=== PATIENT | female | born 1945 | race Caucasian/White ===

== ENCOUNTER → 2017-03-17 | Outpatient (CLI) | payer MEDICARE, BC ==
--- NOTE | 2017-03-18 12:57 | MM ---
Reason for exam: screening (asymptomatic). Last mammogram was performed 7 months ago. History: Patient is postmenopausal. Reductions of both breasts, 2010. Benign stereotactic core biopsy of the left breast, December 31, 2004. Benign stereotactic core biopsy of the left breast, April 14, 1999. Physical Findings: A clinical breast exam by your physician is recommended on an annual basis and results should be correlated with mammographic findings. MG 3D Screening Mammo W/Cad Bilateral CC and MLO view(s) were taken. Prior study comparison: August 06, 2016, right breast MG 3d diag mammo w/cad RT. March 11, 2016, bilateral MG diagnostic mammo w CAD EMELYN. October 18, 2014, bilateral MG screening mammo w CAD. August 07, 2013, CAD bilateral diagnostic mammogram. The breast tissue is heterogeneously dense. This may lower the sensitivity of mammography. Previous mammotome biopsy in the left breast x 3. Bilateral mammoplasty changes. Subtle calcifications central left breast on the CC view maybe new but are not clearly localized on the MLO view. These can be reassessed in 6 months. ASSESSMENT: Probably benign, BI-RAD 3 RECOMMENDATION: Follow-up diagnostic mammogram of the left breast in 6 months.
== END | disposition home or self-care (01) ==
LOC: RADMAMWWP 06:57
PROVIDERS: ATTEND Family Medicine
DX: Z12.31 Encounter for screening mammogram for malignant neoplasm of breast (principal)
CPT/HCPCS: 77063; G0202

== ENCOUNTER → 2017-10-17 | Outpatient (CLI) | payer MEDICARE, BC ==
--- NOTE | 2017-10-17 08:20 | MM ---
Reason for exam: follow-up at short interval from prior study. Last mammogram was performed 7 months ago. History: Patient is postmenopausal. Reductions of both breasts, 2010. Benign stereotactic core biopsy of the left breast, December 31, 2004. Benign stereotactic core biopsy of the left breast, April 14, 1999. Physical Findings: Nurse did not find any significant physical abnormalities on exam. MG 3D Diag Mammo W/Cad LT CC, MLO, and ML view(s) were taken of the left breast. Prior study comparison: March 17, 2017, bilateral MG 3d screening mammo w/cad. August 06, 2016, right breast MG 3d diag mammo w/cad RT. The breast tissue is heterogeneously dense. This may lower the sensitivity of mammography. Previous mammotome biopsy in the left breast x 3. Group of microcalcifications lateral left breast at a middle depth are unchanged for 6 months. Continued short interval follow up recommended. Asymmetric density superior left breast does not persist on 3D images. These results were verbally communicated with the patient and result sheet given to the patient on 10/17/17. ASSESSMENT: Probably benign, BI-RAD 3 RECOMMENDATION: Follow-up diagnostic mammogram of both breasts in 6 months.
== END | disposition home or self-care (01) ==
LOC: RADMAMWWP 07:01
PROVIDERS: ATTEND Family Medicine
DX: R92.8 Other abnormal and inconclusive findings on diagnostic imaging of breast (principal)
CPT/HCPCS: G0206; G0279

== ENCOUNTER → 2018-01-18 | Outpatient (CLI) | payer MEDICARE, BC ==
[2018-01-18 10:21] LABS: Basophils # (A) 0.1 k/uL (0-0.2); Basophils % (A) 1 %; Eosinophils # (A) 0.1 k/uL (0-0.7); Eosinophils % (A) 2 %; HCT 40.1 % (34.0-46.0); HGB 12.9 gm/dL (11.4-16.0); Lymphocytes # (A) 1.5 k/uL (1.0-4.8); Lymphocytes % (A) 31 %; MCH 29.6 pg (25.0-35.0); MCHC 32.1 g/dL (31.0-37.0); MCV 92.2 fL (80.0-100.0); Mean Platelet Volume 8.2; Monocytes # (A) 0.3 k/uL (0-1.0); Monocytes % (A) 6 %; Neutrophils # (A) 2.8 k/uL (1.3-7.7); Neutrophils % (A) 57 %; Platelet Count 198 k/uL (150-450); RBC 4.35 m/uL (3.80-5.40); RDW 13.8 % (11.5-15.5); WBC 4.9 k/uL (3.8-10.6)
[2018-01-18 10:43] LABS: T4, Free (Free Thyroxine) 0.98 ng/dL (0.78-2.19)
== END | disposition home or self-care (01) ==
LOC: LABWHC1 10:35
PROVIDERS: ATTEND Otolaryngology
DX: R43.0 Anosmia (principal)
CPT/HCPCS: 36415; 82565; 82607; 84439; 84443; 85025

== ENCOUNTER → 2018-01-31 | Outpatient (CLI) | payer MEDICARE, BC ==
--- NOTE | 2018-02-01 08:02 | MR ---
EXAMINATION TYPE: MR brain wo/w con DATE OF EXAM: 01/31/2018 COMPARISON: CT brain 07/05/2011 HISTORY: 72-year-old female Anosmia / Dysnomia TECHNIQUE: Multiplanar, multisequence images of the brain and brainstem were acquired before and aft er administration of 9 mL IV Gadavist. Diffusion weighted imaging is performed. FINDINGS: No evidence for acute infarction, hemorrhage, mass, mass effect, midline shift, herniation, effacemen t of basal cisterns, or extra-axial fluid collection. The ventricles and sulci are age-appropriate with mild generalized supratentorial volume loss. Major intracranial flow voids are intact. T2/FLAIR weighted sequences show mild scattered burden of right white matter change with foci located in the subcortical, deep, and periventricular regions of both cerebral hemispheres numbering approxi mately 10 on each side. Midline structures demonstrate normal morphology. The craniocervical junction is normal. Post contrast images demonstrate no evidence of pathologic enhancement. Dural venous sinuses are pat ent. Moderate mucosal thickening ethmoid air cells and mild to moderate within the maxillary sinuses. Glob es are intact. IMPRESSION: 1. No acute intracranial abnormality seen. 2. Mild cerebral atrophy. There is mild burden of T2 bright white matter change which is nonspecific, most likely relating to chronic small vessel ischemic disease. 3. Moderate chronic ethmoid and mild to moderate chronic maxillary sinusitis.
== END | disposition home or self-care (01) ==
LOC: RADMRIMAIN 06:01
PROVIDERS: ATTEND Otolaryngology
DX: G31.9 Degenerative disease of nervous system, unspecified (principal); R90.82 White matter disease, unspecified
CPT/HCPCS: 70553; A9581

== ENCOUNTER → 2018-07-26 | Outpatient (CLI) | payer MEDICARE, BC ==
--- NOTE | 2018-07-26 08:28 | MM ---
Reason for exam: follow-up at short interval from prior study. Last mammogram was performed 9 months ago. History: Patient is postmenopausal. Reductions of both breasts, 2010. Benign stereotactic core biopsy of the left breast, December 31, 2004. Benign stereotactic core biopsy of the left breast, April 14, 1999. Physical Findings: Nurse did not find any significant physical abnormalities on exam. MG 3D Diag Mammo W/Cad EMELYN Bilateral CC, MLO, and XCCL view(s) were taken. Prior study comparison: October 17, 2017, left breast MG 3d diag mammo w/cad LT. March 17, 2017, bilateral MG 3d screening mammo w/cad. The breast tissue is heterogeneously dense. This may lower the sensitivity of mammography. Previous mammotome biopsy in the left breast x 3. Small grouped calcifications central left breast stable for 1 year 4 months. Additional diagnostic follow up recommended. Scattered bilateral calcifications are unchanged. These results were verbally communicated with the patient and result sheet given to the patient on 07/26/18. ASSESSMENT: Probably benign, BI-RAD 3 RECOMMENDATION: Follow-up diagnostic mammogram of both breasts in 1 year. (left breast total 2 year follow up)
== END | disposition home or self-care (01) ==
LOC: RADMAMWWP 07:35
PROVIDERS: ATTEND Family Medicine
DX: R92.8 Other abnormal and inconclusive findings on diagnostic imaging of breast (principal)
CPT/HCPCS: 77066; G0279; 77062

== ENCOUNTER 2018-08-09 07:49 | Day surgery (SDC) | payer MEDICARE, BC ==
[2018-08-08 09:22] VITALS: BMI 37.1
[~2018-08-09 07:49] MED LIST: LACTATED RINGERS 1,000 ML IV SCH; LIDOCAINE 1% 20 ML VIAL (10MG/ML) FOR IV START INTRADERMA PRN
[2018-08-09 08:12] VITALS: RESP 18; TEMP 97.8
[2018-08-09] MEDS ORDERED: PROPOFOL 10 MG/ML 20 ML VIAL IV ONE (08:24)
[2018-08-09] MEDS ORDERED: LIDOCAINE 1% INJ 10MG/ML (20 ML MDV) ONE (08:24)
--- NOTE | 2018-08-09 08:28 | P.GSHP ---
History of Present Illness H&P Date: 08/09/18 Chief Complaint: Colon cancer screening Patient here today for colonoscopy. Last colonoscopy 5 years ago and this was normal. No bowel complaints. No family history of colon cancer. Past Medical History Past Medical History: Hyperlipidemia, Hypertension History of Any Multi-Drug Resistant Organisms: None Reported Past Surgical History: Breast Surgery Additional Past Surgical History / Comment(s): BREAST REDUCTION Past Anesthesia/Blood Transfusion Reactions: No Reported Reaction Smoking Status: Never smoker - Past Family History Father Family Medical History: Cancer Additional Family Medical History / Comment(s): LUNG CANCER Sister(s) Family Medical History: Cancer Brother(s) Family Medical History: Cancer Medications and Allergies Home Medications Medication Instructions Recorded Confirmed Type Olmesartan Medoxomil [Benicar] 40 mg PO HS 08/08/18 08/09/18 History Pravastatin Sodium [Pravachol] 20 mg PO HS 08/08/18 08/09/18 History Allergies Allergy/AdvReac Type Severity Reaction Status Date / Time No Known Allergies Allergy Verified 08/08/18 09:16 Surgical - Exam Vital Signs Temp Pulse Resp BP Pulse Ox 97.8 F 75 18 136/72 96 08/09/18 08:11 08/09/18 08:11 08/09/18 08:11 08/09/18 08:11 08/09/18 08:11 Physical exam: General: Well-developed, well-nourished HEENT: Normocephalic, sclerae nonicteric Abdomen: Nontender, nondistended Extremities: No edema Neuro: Alert and oriented Assessment and Plan (1) Colon cancer screening Narrative/Plan: Will proceed with colonoscopy at this time Current Visit: Yes Status: Acute Code(s): Z12.11 - ENCOUNTER FOR SCREENING FOR MALIGNANT NEOPLASM OF COLON SNOMED Code(s): 715403916
--- NOTE | 2018-08-09 08:45 | P.PCN ---
Date of Procedure: 08/09/18 Procedure(s) Performed: PREOPERATIVE DIAGNOSIS: Colon cancer screening POSTOPERATIVE DIAGNOSIS: Cecal polyp, sigmoid polyp, diverticulosis PROCEDURE: Colonoscopy with snare polypectomy and biopsy ANESTHESIA: MAC SURGEON: Juan Pablo Ontiveros M.D. SPECIMENS: Polyps ENDOSCOPIC PROCEDURE: The patient was placed on the endoscopy table in the left decubitus position. The Olympus colonoscope was inserted into the anus and passed under direct visualization to the base of the cecum. The appendiceal orifice was visualized. From that point the scope was slowly withdrawn inspecting all surfaces carefully. A small polyp in the base of the cecum was seen. This was removed using the cold biopsy forceps. The remainder of the ascending transverse and descending colon appeared normal. In the sigmoid colon a small polyp was removed using the snare with cautery technique. The remainder of the sigmoid and rectum appeared normal. Air was moderate diverticulosis scattered throughout the entire colon. Digital rectal examination was normal. The patient was taken to the recovery room in stable condition per anesthesia guidelines. RECOMMENDATIONS: Await biopsy results. Anticipate follow-up colonoscopy 5 years.
[2018-08-09 09:15] VITALS: BP 116/62; PULSE 62
== END 2018-08-09 09:29 | disposition home or self-care (01) ==
LOC: ORWHC2ENDO 07:49
PROVIDERS: ATTEND Surgery
DX: Z12.11 Encounter for screening for malignant neoplasm of colon (principal); K63.5 Polyp of colon; K57.90 Diverticulosis of intestine, part unspecified, without perforation or abscess without bleeding; E78.5 Hyperlipidemia, unspecified; I10 Essential (primary) hypertension; Z79.899 Other long term (current) drug therapy
CPT/HCPCS: 88305; 45380; 45385; J2001; J2704

== ENCOUNTER → 2019-03-21 | Outpatient (CLI) | payer MEDICARE, BC ==
--- NOTE | 2019-03-21 07:48 | US ---
EXAMINATION TYPE: US thyroid st tissue head/neck DATE OF EXAM: 03/21/2019 COMPARISON: NONE CLINICAL HISTORY: E04.1 THYROID NODULE. follow up exam GLAND SIZE: Right Lobe: 3.2 x 1.4 x 1.9 cm Overall Parenchyma: heterogenous Left Lobe: 5.8 x 2.9 x 2.7 cm Overall Parenchyma: heterogeneous Isthmus Thickness: 0.4 cm NODULES RIGHT: # of nodules measured on right: 2 1. 1.8 X 1.2 x 1.3 cm hypoechoic solid nodule at the mid pole with well-defined margins. This nodu le is wider than tall and shows intranodular vascularity. Prior size: no previous 2. 1.0 X 0.9 x 0.9 cm hyperechoic solid nodule at the lower pole with well-defined margins. This no dule is wider than tall and shows no intranodular vascularity. Prior size: no previous LEFT: # of nodules measured on left: 2 1. 4.0 X 3.1 x 2.6 cm hypoechoic solid nodule at the mid pole with well-defined margins. This nodu le is wider than tall and shows no intranodular vascularity. Prior size: no previous 2. 1.2 X 0.9 x 0.9 cm isoechoic solid nodule at the upper pole with well-defined margins. This nodu le is wider than tall and shows no intranodular vascularity. Prior size: no previous calcification seen inferiorly ISTHMUS: # of nodules measured in the isthmus: 0 Bilateral neck scanned, no evidence of lymphadenopathy. Patient states she had previous ultrasounds here and fna but no record of it from 2005 to current kirit e. IMPRESSION: 1. Multiple nonspecific thyroid nodules as discussed above. The need to biopsy should be made on a cl inical basis. Enlargement of the left thyroid lobe. Correlate with thyroid function testing and physi lilli exam findings.
[2019-03-21 08:51] LABS: T4, Free (Free Thyroxine) 1.07 ng/dL (0.78-2.19)
== END | disposition home or self-care (01) ==
LOC: RADUSWWP 06:50
PROVIDERS: ATTEND Otolaryngology
DX: E04.2 Nontoxic multinodular goiter (principal); E03.9 Hypothyroidism, unspecified
CPT/HCPCS: 36415; 76536; 84439; 84443; 86376

== ENCOUNTER 2019-04-12 09:27 | Day surgery (SDC) | payer MEDICARE, BC ==
[2019-04-12 09:47] VITALS: TEMP 97.8
[2019-04-12 12:19] VITALS: BP 145/83; PULSE 84; RESP 16
--- NOTE | 2019-04-12 14:10 | US ---
EXAMINATION TYPE: US FNA thyroid each add lesion, US FNA thyroid each add lesion, US FNA thyroid each add lesion, US FNA thyroid first lesion DATE OF EXAM: 04/12/2019 COMPARISON: Ultrasound thyroid 03/21/2019 HISTORY: Thyroid nodules bilaterally. Maximal barrier technique was utilized, ultrasound used with sterile technique. After informed conse nt, skin overlying the first lesion in the mid pole of the right lobe was localized with ultrasound a nd the overlying skin prepped and draped. Ultrasound was utilized using sterile technique. Lidocaine was used for local anesthesia. Five passes with a 25-gauge needle were made into the nodule and aspi rated specimen was submitted to cytology. Using similar technique the lower pole nodule medially was sampled with 5 passes with a 25-gauge needle. Using similar technique the upper pole region of the le ft lobe of the gland was sampled with 5 passes and a 25-gauge needle. Subsequently the dominant nodul e in the left lobe of the gland was sampled with 5 passes with a 25-gauge needle. Following the proce dure hemostasis achieved. No immediate complication. The patient discharged in stable condition. IMPRESSION: STATUS POST ULTRASOUND GUIDED FINE NEEDLE ASPIRATION OF THYROID NODULES, PATHOLOGY IS PEN DING. Incidental note made of an additional nodule in the lower pole the right lobe laterally. THIS PROCEDURE WAS PERFORMED BY THE UNDERSIGNED.
== END 2019-04-12 11:45 | disposition home or self-care (01) ==
LOC: RADPROMAIN 09:27
PROVIDERS: ATTEND Otolaryngology
DX: E04.2 Nontoxic multinodular goiter (principal)
CPT/HCPCS: 10005; 10006; 88173; 88305

== ENCOUNTER → 2019-10-03 | Outpatient (CLI) | payer MEDICARE, BC ==
--- NOTE | 2019-10-03 08:10 | MM ---
Reason for exam: additional evaluation requested from prior study. Last mammogram was performed 1 year and 2 months ago. History: Patient is postmenopausal. Reductions of both breasts, 2009. Benign stereotactic core biopsy of the left breast, December 31, 2004. Benign stereotactic core biopsy of the left breast, April 14, 1999. Physical Findings: Nurse did not find any significant physical abnormalities on exam. MG 3D Diag Mammo W/Cad EMELYN Bilateral CC and MLO view(s) were taken. XCCL view(s) were taken of the left breast. Prior study comparison: July 26, 2018, bilateral MG 3d diag mammo w/cad EMELYN. October 17, 2017, left breast MG 3d diag mammo w/cad LT. The breast tissue is heterogeneously dense. This may lower the sensitivity of mammography. Benign appearing similar bilateral calcifications. No suspicious abnormality. Multiple left biopsy markers. These results were verbally communicated with the patient and result sheet given to the patient on 10/03/19. ASSESSMENT: Benign, BI-RAD 2 RECOMMENDATION: Routine screening mammogram of both breasts in 1 year.
== END | disposition home or self-care (01) ==
LOC: RADMAMWWP 06:57
PROVIDERS: ATTEND Family Medicine
DX: R92.8 Other abnormal and inconclusive findings on diagnostic imaging of breast (principal)
CPT/HCPCS: 77066; G0279; 77062

== ENCOUNTER → 2021-01-07 | Outpatient (CLI) | payer MEDICARE, BC ==
--- NOTE | 2021-01-07 15:47 | BD ---
EXAMINATION TYPE: Axial Bone Density DATE OF EXAM: 01/07/2021 COMPARISON: 08/06/2016 CLINICAL HISTORY: Height: 60.2 IN Weight: 209 LBS RISK FACTORS HISTORY OF: Active: YES Diet low in dairy products/other sources of calcium: YES Postmenopausal woman: AGE 55 MEDICATIONS: Additional Medications: BENICAR, PRAVASTATIN, Additional History: SARCOMA EXAM MEASUREMENTS: Bone mineral densitometry was performed using the [employer] System. Bone mineral density as measured about the Lumbar spine is: ----- L1-L4(G/cm2): 1.153 T Score Values are as follows: ----- L2: -0.2 ----- L3: -0.1 ----- L4: 0.4 ----- L1-L4: -0.2 Bone mineral density has: Increased 0.8% since study of: 08/06/2016 Bone mineral density about the R hip (g/cm2): 0.919 Bone mineral density about the L hip (g/cm2): 0.824 T Score values are as follows: -----R Neck: -0.9 -----L Neck: -1.5 -----R Total: -1.2 -----L Total: -0.7 Bone mineral density has: Decreased -10.3% since study of: 08/06/2016 IMPRESSION: Osteopenia right femoral neck. NOTE: T-SCORE=SD OF THE YOUNG ADULT MEAN.
--- NOTE | 2021-01-08 12:12 | MM ---
Reason for exam: screening (asymptomatic). Last mammogram was performed 1 year and 3 months ago. History: Patient is postmenopausal and history of other cancer. Reductions of both breasts, 2009. Benign stereotactic core biopsy of the left breast, December 31, 2004. Benign stereotactic core biopsy of the left breast, April 14, 1999. Physical Findings: A clinical breast exam by your physician is recommended on an annual basis and results should be correlated with mammographic findings. MG 3D Screening Mammo W/Cad Bilateral CC, MLO, and CV view(s) were taken. Prior study comparison: October 03, 2019, bilateral MG 3d diag mammo w/cad EMELYN. July 26, 2018, bilateral MG 3d diag mammo w/cad EMELYN. The breast tissue is heterogeneously dense. This may lower the sensitivity of mammography. Stable benign calcifications. There is no discrete abnormality. No significant changes when compared with prior studies. ASSESSMENT: Benign, BI-RAD 2 RECOMMENDATION: Routine screening mammogram of both breasts in 1 year.
== END | disposition home or self-care (01) ==
LOC: RADMAMWWP 11:06
PROVIDERS: ATTEND Family Medicine
DX: Z12.31 Encounter for screening mammogram for malignant neoplasm of breast (principal); M85.851 Other specified disorders of bone density and structure, right thigh; Z78.0 Asymptomatic menopausal state
CPT/HCPCS: 77063; 77067; 77080

== ENCOUNTER → 2021-05-11 | Outpatient (CLI) | payer MEDICARE, BC ==
[2021-05-11 12:40] LABS: HCT 40.8 % (34.0-46.0); HGB 13.2 gm/dL (11.4-16.0); MCH 29.8 pg (25.0-35.0); MCHC 32.3 g/dL (31.0-37.0); MCV 92.4 fL (80.0-100.0); Mean Platelet Volume 8.6; Platelet Count 192 k/uL (150-450); RBC 4.42 m/uL (3.80-5.40); RDW 13.8 % (11.5-15.5); WBC 5.2 k/uL (3.8-10.6)
[2021-05-11 12:44] LABS: ALT 9 U/L (4-34); AST 25 U/L (14-36); African American GFR (CKD) >90 (>60 ml/min/1.73 sqM); Albumin 4.4 g/dL (3.5-5.0); Alkaline Phosphatase 93 U/L (38-126); Anion Gap 6 mmol/L; Blood Urea Nitrogen 16 mg/dL (7-17); Calcium 9.4 mg/dL (8.4-10.2); Carbon Dioxide 27 mmol/L (22-30); Chloride 110 mmol/L (98-107); Glucose 104 mg/dL (74-99); Non-African American GFR(CKD) >90 (>60 ml/min/1.73 sqM); Potassium 4.5 mmol/L (3.5-5.1); Sodium 143 mmol/L (137-145); Total Bilirubin 0.2 mg/dL (0.2-1.3)
[2021-05-11 13:08] LABS: INR 0.9 (<1.2)
[2021-05-11 13:15] LABS: Appearance,Urine Cloudy (Clear); Bacteria,Urine Rare /hpf; Bilirubin,Urine Negative (Negative); Blood,Urine Trace (Negative); Color,Urine Yellow; Glucose,Urine (UA) Negative (Negative); Ketones,Urine Negative (Negative); Leukocyte Esterase,Urine Large (Negative); Mucus,Urine Rare /hpf; Nitrite,Urine Negative (Negative); PH, Urine 5.5 (5.0-8.0); Protein,Urine Trace (Negative); RBC,Urine 8 /hpf (0-5); Specific Gravity,Urine 1.025 (1.001-1.035); Squamous Epithelial Cell,Urine 5 /hpf (0-4); Urobilinogen,Urine <2.0 mg/dL (<2.0); WBC,Urine 75 /hpf (0-5)
== END | disposition home or self-care (01) ==
LOC: LABPAT 11:31
PROVIDERS: ATTEND Orthopaedic Surgery
DX: Z01.812 Encounter for preprocedural laboratory examination (principal); Z01.810 Encounter for preprocedural cardiovascular examination; Z01.818 Encounter for other preprocedural examination
CPT/HCPCS: 36415; 80053; 81001; 85027; 85610; 85730; 86850; 86900; 86901; 87070; 93005

== ENCOUNTER 2021-05-19 07:56 | Day surgery (SDC) | payer MEDICARE, BC ==
[2021-05-12 12:41] VITALS: BMI 39.1
[~2021-05-19 07:56] MED LIST changes: +ACETAMINOPHEN TAB 500 MG TAB PO PRN; +DEXAMETHASONE SOD PHOSPHATE 4 MG/ML 1 ML VIAL IV ONE; +GABAPENTIN 300 MG CAP PO PRN; +HYDROmorphone 0.5 MG/0.5 ML SYRINGE IVP PRN; -LACTATED RINGERS 1,000 ML IV SCH; -LIDOCAINE 1% 20 ML VIAL (10MG/ML) FOR IV START INTRADERMA PRN; +MELOXICAM 7.5 MG TAB PO PRN; +ONDANSETRON 4 MG/2 ML VIAL IVP ONE; +TRANEXAMIC ACID 1,000 MG in SODIUM CHLORIDE 0.9% 100 ML IVPB PRN
[2021-05-19] MEDS ORDERED: LIDOCAINE 1% (10MG/ML) FOR IV START INTRADERMA ONE (08:30)
[2021-05-19] MEDS: LACTATED RINGERS 1,000 ML IV SCH ×2 (08:30→12:08)
[2021-05-19] MEDS ORDERED: HYDROmorphone 0.2 MG/1 ML SYRINGE IVP PRN (08:54)
[2021-05-19] MEDS ORDERED: ONDANSETRON 4 MG/2 ML VIAL IVP PRN (08:54)
[2021-05-19] MEDS ORDERED: HYDROmorphone 0.5 MG/0.5 ML SYRINGE IVP PRN ×2 (08:54)
[2021-05-19] MEDS ORDERED: NALOXONE 0.4 MG/ML 1 ML VIAL IV PRN (08:54)
[2021-05-19] MEDS ORDERED: HYDROcodone/APAP 7.5-325MG 1 EACH TAB PO PRN ×2 (08:56)
[2021-05-19] MEDS ORDERED: SODIUM CHLORIDE 0.9% 1,000 ML IV SCH (09:00)
[2021-05-19] MEDS ORDERED: LIDOCAINE 1% INJ 10MG/ML (20 ML MDV) ONE (09:12)
[2021-05-19] MEDS ORDERED: ceFAZolin 3,000 MG in SODIUM CHLORIDE 0.9% IRRIGATIO 3,000 ML IRRIGATION ONE (09:12)
[2021-05-19] MEDS ORDERED: SODIUM CHLORIDE 0.9% 100 ML BAG ONE (09:12)
[2021-05-19] MEDS ORDERED: TRANEXAMIC ACID 1,000 MG/10 ML VIAL ONE (09:12)
[2021-05-19] MEDS ORDERED: MIDAZOLAM 2 MG/2 ML VIAL ONE (09:12)
[2021-05-19] MEDS ORDERED: HEPARIN SODIUM,PORCINE 10,000 UNIT/ML 1 ML VIAL ONE (09:12)
[2021-05-19] MEDS ORDERED: ROCURONIUM 10 MG/ML (5 ML VIAL) IV ONE (09:12)
[2021-05-19] MEDS ORDERED: fentaNYL (PF) 50 MCG/ML 2 ML AMP ONE (09:12)
[2021-05-19] MEDS ORDERED: HYDROmorphone (PF) 1 MG/ML ONE (09:12)
[2021-05-19] MEDS ORDERED: SODIUM CHLORIDE 0.9% IRRIG 1,000 ML BTL IRRIGATION ONE (09:12)
[2021-05-19] MEDS ORDERED: SUCCINYLCHOLINE CHLORIDE 100 MG/5 ML SYR IV ONE (09:12)
[2021-05-19] MEDS ORDERED: PROPOFOL 10 MG/ML 20 ML VIAL IV ONE (09:12)
[2021-05-19] MEDS: ROPIVACAINE/EPI/CLONIDINE/KET 50 ML SYRINGE MISCELLANE PRN ×2 (09:17→10:26)
--- NOTE | 2021-05-19 10:32 | P.OP ---
Date of Procedure: 05/19/21 Preoperative Diagnosis: Severe osteoarthritis right hip Postoperative Diagnosis: Severe osteoarthritis right hip Procedure(s) Performed: Right total hip arthroplasty with a direct anterior approach Implants: [employer] Polarstem standard size 3 [employer] R3, 3 hole hemispherical acetabular shell, 52 mm [employer] Reflection 6.5 mm cancellus screw, 20 mm 2 [employer] R3, XLPE 20 acetabular liner [employer] Oxinium femoral head 36 m, +0 All components were press-fit. The articulation is Oxinium on polyethylene. Anesthesia: GETA Surgeon: Darius Aguirre Resource Manager #1: Brittny Gary Estimated Blood Loss (ml): 200 (65 mL returned with Cell Saver) Pathology: other (Femoral head) Condition: stable Disposition: PACU Indications for Procedure: After failure of conservative treatment we discussed the surgical and nonsurgical treatment options at length. Patient wishes to proceed with a total hip arthroplasty with a direct anterior approach. Complications specific to this procedure were discussed at length, including but not limited to infection, leg length discrepancy, dislocation, nerve injury, and fracture. Covid-19 was also discussed at length with the patient, and they are aware of the current policies and procedures. The patient was given the option of delaying surgery, but they elect to proceed knowing these risks. Patient is aware of all these complications and informed consent was obtained Operative Findings: The operative findings are consistent with severe osteoarthritis of the right hip Description of Procedure: Patient was seen and evaluated in the preoperative area and the consent was reviewed. The operative site was marked with a skin marker. The patient was then brought to the operating room and given preoperative antibiotics intravenously. 1 g of Tranexamic acid was also given intravenously. A general anesthetic was administered by the anesthesia department. The patient was then placed on the [place] table with the bony prominences well-padded. The hip area was then prepped with a ChloraPrep solution and draped in the usual sterile fashion. A universal timeout was then performed, which confirmed the patient's name, surgical site, ALLERGIES, and procedure being performed on the consent. Next the incision site was located at 1 cm distal to the anterior superior iliac spine along the flexion crease of the hip. The skin and subcutaneous tissues were sharply incised. Incision was carefully dissected down to the fascia overlying the tensor fascia campos muscle. This fascia was then incised in line with the incision. Care was taken to stay laterally in order to avoid injuring the lateral femoral cutaneous nerve. Next, using blunt finger dissection, the tensor fascia campos muscle was dissected off its investing fascia. The muscle was then carefully retracted laterally with a cobra retractor over the lateral neck of the femur. Next, the circumflex vessels were identified and cauterized using the AquaMantis device. The anterior hip capsule was then exposed. The capsule was then opened and an inverted T fashion. Cobra retractors were then placed intracapsularly. The retractors were maintained intracapsular throughout the procedure. The proximal femur was then visualized. A small amount of traction was placed on the leg. The femoral neck was then osteotomized appropriate level above the lesser trochanter. A small wedge of bone was then removed from the remaining femoral head. Next, using a corkscrew the femoral head was removed from the acetabulum. On gross visual inspection, the femoral head had complete loss of articular cartilage and multiple periarticular osteophytes. The femoral head was then measured. Attention was then turned to the acetabulum. The acetabulum was exposed and any remaining labrum was excised. Sequential reaming of the acetabulum was performed using fluoroscopic guidance until there was a good bed of bleeding cancellus bone. When the appropriate size was reached, a trial was then placed. The position and fit of the trial was checked with fluoroscopy. The trial was then removed. Then, using fluoroscopic guidanc e, the final implant was impacted at 20 of anteversion and 40 of abduction, and fully seated in the acetabulum. 2 screws were then placed in the acetabulum. Again fluoroscopy was used to check position of the screws. Next, the liner was then impacted, with a 20 elevated liner located in the anterior superior quadrant. Component locking was confirmed. Attention was then directed to the femur. With the aid of the [place] table, the femur was externally rotated to approximately 130, extended, and adducted under the opposite leg. A side hook was then placed under the proximal femur, and the side hook elevator was used to elevate the proximal femur while releasing the capsule. Retractors were then placed. A capsular release was performed, as well as a release of the conjoined tendon, which afforded excellent visualization of the proximal femur. Next, a box osteotome was used to lateralize the proximal femur. A purse seining hand was then used to locate the femoral canal. Sequential broaching was then performed with appropriate size which afforded excellent fixation in the proximal femur. A trial was then placed with appropriate head and neck, and the hip was gently reduced with the aid of the [place] table. Fluoroscopy was then used to check position of the components, as well as to ensure equal leg lengths. The hip was then gently dislocated and the trials were then removed. Final implants were then impacted and the hip was again reduced. Final fluoroscopic x-rays confirmed that the components were in anatomic position, as well as equal leg lengths. The hip was also taken through range of motion, and found to be stable. The hip was then copiously irrigated with antibiotic solution with pulsatile lavage. The hip was then irrigated with Irrisept solution. The soft tissues were then injected with a ropivacaine solution, which consisted of 246.25 mg of ropivacaine, 0.5 mg of epinephrine, 30 mg of Toradol, 80 g of clonidine, and 48.45 mL of sterile water, for a total of 100 mL of fluid injected. A second dose of 1 g of Tranexamic acid was also given intravenously. Any blood collected by Cell Saver was then returned to the patient at this time. The fascia was then closed with 2-0 strata fix suture. The subcutaneous tissue was closed with 3-0 Vicryl. The subcuticular tissue was closed with 3-0 strata fix suture. The skin was then closed with Exofin skin glue. After the glue and dried, and Optifoam silver impregnated dressing was applied. The patient was then transferred to the recovery room in stable condition. The rehab assistant GUANAKITO Mcnamara was required due to the complexity of surgery, and the need for skilled medical surgical tech for positioning, draping, exposure, retraction, and closure of the wound.
[2021-05-19 11:05] VITALS: TEMP 97.6
--- NOTE | 2021-05-19 11:23 | XR ---
Fluoroscopy History: RT ANTERIOR HIP Radiology provided fluoroscopic time and 4 films are submitted for RT ANTERIOR HIP .
[2021-05-19 13:56] VITALS: RESP 16
[2021-05-19 14:52] VITALS: PULSE 78
[2021-05-19 15:36] VITALS: BP 134/73
== END 2021-05-19 15:53 | disposition home health service (06) ==
LOC: OR 07:56
PROVIDERS: ATTEND Orthopaedic Surgery
DX: M16.11 Unilateral primary osteoarthritis, right hip (principal); E78.5 Hyperlipidemia, unspecified; I10 Essential (primary) hypertension; R26.81 Unsteadiness on feet; Z98.890 Other specified postprocedural states; Z83.3 Family history of diabetes mellitus; Z82.49 Family history of ischemic heart disease and other diseases of the circulatory system; Z79.899 Other long term (current) drug therapy
CPT/HCPCS: 97110; 97161; 88300; 73501; 27130; P9022; C1776; J2250; J1644; J1100; J0690 ×2; J2405; J2001; J3010; J1170 ×2; J0330; J2704; 86850; 86900; 86901

== ENCOUNTER → 2022-03-25 | Outpatient (CLI) | payer MEDICARE, BC ==
--- NOTE | 2022-03-26 13:51 | MM ---
Reason for exam: screening (asymptomatic). Last mammogram was performed 1 year and 3 months ago. History: Patient is postmenopausal and history of other cancer. Reductions of both breasts, 2010. Benign stereotactic core biopsy of the left breast, December 31, 2004. Benign stereotactic core biopsy of the left breast, April 14, 1999. Physical Findings: A clinical breast exam by your physician is recommended on an annual basis and results should be correlated with mammographic findings. MG 3D Screening Mammo W/Cad Bilateral CC, MLO, and XCCL view(s) were taken. Prior study comparison: January 07, 2021, bilateral MG 3d screening mammo w/cad. October 03, 2019, bilateral MG 3d diag mammo w/cad EMELYN. The breast tissue is heterogeneously dense. This may lower the sensitivity of mammography. Stable benign calcifications. There is no discrete abnormality. No significant changes when compared with prior studies. ASSESSMENT: Benign, BI-RAD 2 RECOMMENDATION: Routine screening mammogram of both breasts in 1 year.
== END | disposition home or self-care (01) ==
LOC: RADMAMWWP 07:41
PROVIDERS: ATTEND Family Medicine
DX: Z12.31 Encounter for screening mammogram for malignant neoplasm of breast (principal)
CPT/HCPCS: 77063; 77067

== ENCOUNTER 2024-05-15 10:47 | Day surgery (SDC) | payer MEDICARE, BC ==
[2024-05-09 14:23] VITALS: BMI 35.3
[~2024-05-15 10:47] MED LIST changes: -ACETAMINOPHEN TAB 500 MG TAB PO PRN; -DEXAMETHASONE SOD PHOSPHATE 4 MG/ML 1 ML VIAL IV ONE; -GABAPENTIN 300 MG CAP PO PRN; -HYDROmorphone 0.5 MG/0.5 ML SYRINGE IVP PRN; +LIDOCAINE 1% (10MG/ML) FOR IV START INTRADERMA PRN; -MELOXICAM 7.5 MG TAB PO PRN; -ONDANSETRON 4 MG/2 ML VIAL IVP ONE; -TRANEXAMIC ACID 1,000 MG in SODIUM CHLORIDE 0.9% 100 ML IVPB PRN
[2024-05-15 11:11] VITALS: TEMP 97.5
[2024-05-15] MEDS: IV FLUID CONTINUATION 1,000 ML IV ONE (11:12)
[2024-05-15] MEDS: LACTATED RINGERS 1,000 ML IV SCH (11:19)
[2024-05-15] MEDS ORDERED: PROPOFOL 10 MG/ML 20 ML VIAL IV ONE (11:30)
--- NOTE | 2024-05-15 11:43 | P.GSHP ---
History of Present Illness H&P Date: 05/15/24 Chief Complaint: Colon cancer screening 78-year-old female here for colonoscopy. Last colonoscopy 6 years ago. Patient with history of colon polyps that were benign. No family history of colon cancer. No bowel complaints. Past Medical History Past Medical History: Hyperlipidemia, Hypertension Additional Past Medical History / Comment(s): chronic sinus infection History of Any Multi-Drug Resistant Organisms: None Reported Past Surgical History: Breast Surgery, Joint Replacement Additional Past Surgical History / Comment(s): colonoscopy, breast reduction, laser eye surgery, RT NISSA Past Anesthesia/Blood Transfusion Reactions: No Reported Reaction Smoking Status: Never smoker - Past Family History Father Family Medical History: Cancer Sister(s) Family Medical History: Cancer Brother(s) Family Medical History: Cancer Mother Family Medical History: COPD Medications and Allergies Home Medications Medication Instructions Recorded Confirmed Type Olmesartan Medoxomil [Benicar] 40 mg PO HS 08/08/18 05/15/24 History Pravastatin Sodium [Pravachol] 20 mg PO HS 08/08/18 05/15/24 History hydroCHLOROthiazide 12.5 mg PO DAILY 05/09/24 05/15/24 History Allergies Allergy/AdvReac Type Severity Reaction Status Date / Time No Known Allergies Allergy Verified 05/15/24 11:12 Surgical - Exam Vital Signs Temp Pulse Resp BP Pulse Ox 97.5 F L 63 18 152/74 97 05/15/24 11:10 05/15/24 11:10 05/15/24 11:10 05/15/24 11:10 05/15/24 11:10 Physical exam: General: Well-developed, well-nourished HEENT: Normocephalic, sclerae nonicteric Abdomen: Nontender, nondistended Extremities: No edema Neuro: Alert and oriented Assessment and Plan (1) Colon cancer screening Narrative/Plan: Will proceed with colonoscopy at this time. Current Visit: No Status: Acute Code(s): Z12.11 - ENCOUNTER FOR SCREENING FOR MALIGNANT NEOPLASM OF COLON SNOMED Code(s): 197820358
--- NOTE | 2024-05-15 11:45 | P.PCN ---
Date of Procedure: 05/15/24 Procedure(s) Performed: PREOPERATIVE DIAGNOSIS: Colon cancer screening POSTOPERATIVE DIAGNOSIS: Diverticulosis, small rectal polyp PROCEDURE: Colonoscopy with biopsy ANESTHESIA: MAC SURGEON: Juan Pablo Ontiveros M.D. SPECIMENS: ENDOSCOPIC PROCEDURE: The patient was placed on the endoscopy table in the left decubitus position. The Olympus colonoscope was inserted into the anus and passed under direct visualization to the base of the cecum. The appendiceal orifice was visualized. From that point the scope was slowly withdrawn inspecting all surfaces carefully. There were no neoplastic inflammatory or polypoid lesions throughout the cecum, ascending, transverse, descending, and sigmoid colon. A small polyp in the rectum was noted and removed using the cold biopsy forceps. There was mild left-sided diverticulosis noted. Digital rectal examination was normal. The patient was taken to the recovery room in stable condition per anesthesia guidelines. RECOMMENDATIONS: Await biopsy results. If no adenomatous tissue advise follow- up colonoscopy 7 years.
[2024-05-15 11:49] VITALS: RESP 16
[2024-05-15 12:04] VITALS: BP 118/68; PULSE 56
== END 2024-05-15 12:39 | disposition home or self-care (01) ==
LOC: ORWHC2ENDO 10:47
PROVIDERS: ATTEND Surgery
DX: Z12.11 Encounter for screening for malignant neoplasm of colon (principal); K62.1 Rectal polyp; K57.30 Diverticulosis of large intestine without perforation or abscess without bleeding; E78.5 Hyperlipidemia, unspecified; I10 Essential (primary) hypertension; F17.200 Nicotine dependence, unspecified, uncomplicated; Z86.010 Personal history of colon polyps; Z79.899 Other long term (current) drug therapy
CPT/HCPCS: 45380; J2704; 88305

== ENCOUNTER → 2024-06-12 | Outpatient (CLI) | payer MEDICARE, BC ==
--- NOTE | 2024-06-13 09:21 | MM ---
Reason for Exam: Screening (asymptomatic). Last screening mammogram was performed 12 month(s) ago. Patient History: Menarche at age 13. First Full-Term at age 21. Postmenopausal. Other cancer. 2009, Bilateral Reduction. 04/14/1999, Benign Stereotactic Core Biopsy on the left side. 12/31/2004, Benign Stereotactic Core Biopsy on the left side. Risk Values: Kusum 5 year model risk: 2.1%. NCI Lifetime model risk: 4.3%. Prior Study Comparison: 01/07/2021 Bilateral Screening Mammogram, [facility]. 03/25/2022 Bilateral Screening Mammogram, [facility]. 06/09/2023 Bilateral MG 3D screening mammo w/cad, [facility]. Tissue Density: The breasts are heterogeneously dense, which may obscure small masses. Findings: Analyzed By CAD. There is grouped calcifications in the upper right breast not well seen on CC view. Recommend spot magnification view, true lateral view and axial ACL view. Additional benign-appearing calcifications are seen. No dominant mass or architectural distortion. Overall Assessment: Incomplete: need additional imaging evaluation, BI-RAD 0 Management: Diagnostic Mammogram of the right breast. . Patient should continue monthly self-breast exams. A clinical breast exam by your physician is recommended on an annual basis. This exam should not preclude additional follow-up of suspicious palpable abnormalities. Note on Kusum scores and lifetime risk: 1. A Kusum score greater than 3% is considered moderate risk. If this is the case, consider specialist referral to assess eligibility for a risk reducing agent. 2. If overall lifetime risk for the development of breast cancer is 20% or higher, the patient may qualify for future screening with alternating mammogram and breast MRI. Electronically signed and approved by: Baltazar Solo M.D. Radiologis
== END | disposition home or self-care (01) ==
LOC: RADMAMWWP 07:09
PROVIDERS: ATTEND Family Medicine
DX: Z12.31 Encounter for screening mammogram for malignant neoplasm of breast (principal); R92.333 Mammographic heterogeneous density, bilateral breasts; Z78.0 Asymptomatic menopausal state
CPT/HCPCS: 77063; 77067

== ENCOUNTER → 2024-06-18 | Outpatient (CLI) | payer MEDICARE, BC ==
--- NOTE | 2024-06-20 10:45 | MM ---
EXAM: MG 3D work up w/cad RT DATE OF EXAM: 06/18/2024 2:16 PM COMPARISON STUDIES: 07/26/2018 Bilateral Diagnostic Mammogram, [facility]. 10/03/2019 Bilateral Diagnostic Mammogram, [facility]. 01/07/2021 Bilateral Screening Mammogram, [facility]. 03/25/2022 Bilateral Screening Mammogram, [facility]. 06/09/2023 Bilateral MG 3D screening mammo w/cad, [facility]. 06/12/2024 Bilateral MG 3D screening mammo w/cad, [facility]. PATIENT HISTORY: Menarche at age 13. First Full-Term at age 21. Postmenopausal. Other cancer. 2009, Bilateral Reduction. 04/14/1999, Benign Stereotactic Core Biopsy on the left side. 12/31/2004, Benign Stereotactic Core Biopsy on the left side. RISK CALCULATION: Kusum 5 year model risk: 2.1%. NCI Lifetime model risk: 4.3%. TISSUE DENSITY: The breasts are heterogeneously dense, which may obscure small masses. FINDINGS: There is an increasing group of microcalcifications within the far upper outer right breast. Tissue sampling is recommended however the calcifications are not felt to be amenable to stereotactic core biopsy. We can attempt needle localization however that may proved challenging. ASSESSMENT: 4 - Suspicious RECOMMENDATION: 1. Needle Localization Right . COMMENTS: . Results were given to the patient verbally at the time of exam. Patient should continue monthly self-breast exams. A clinical breast exam by your physician is recommended on an annual basis. This exam should not preclude additional follow-up of suspicious palpable abnormalities. Note on Kusum scores and lifetime risk: 1. A Kusum score greater than 3% is considered moderate risk. If this is the case, consider specialist referral to assess eligibility for a risk reducing agent. 2. If overall lifetime risk for the development of breast cancer is 20% or higher, the patient may qualify for future screening with alternating mammogram and breast MRI. RAO
== END | disposition home or self-care (01) ==
LOC: RADMAMWWP 13:35
PROVIDERS: ATTEND Family Medicine
DX: R92.8 Other abnormal and inconclusive findings on diagnostic imaging of breast (principal); R92.333 Mammographic heterogeneous density, bilateral breasts; Z78.0 Asymptomatic menopausal state
CPT/HCPCS: 77065; G0279; 77061

== ENCOUNTER → 2024-07-27 | Day surgery (SDC) | payer MEDICARE, BC ==
[2024-07-24 15:46] VITALS: BMI 26.8
[~2024-07-27] MED LIST changes: +HEPARIN SODIUM,PORCINE 5,000 UNIT/ML 1 ML VIAL SQ PRN; +HYDROmorphone 0.5 MG/0.5 ML SYRINGE IVP PRN; +MIDAZOLAM 2 MG/2 ML VIAL IV PRN; +fentaNYL (PF) 50 MCG/ML 2 ML AMP IV PRN
[2024-07-27 07:11] VITALS: BP 144/74; PULSE 78; RESP 16; TEMP 97.9
[2024-07-27] MEDS: IV FLUID CONTINUATION 1,000 ML IV ONE (07:12)
[2024-07-27] MEDS: ONDANSETRON 4 MG/2 ML VIAL IVP ONE (07:19)
[2024-07-27] MEDS: DEXAMETHASONE SOD PHOSPHATE 4 MG/ML 1 ML VIAL IV ONE (07:19)
[2024-07-27] MEDS: LACTATED RINGERS 1,000 ML IV SCH (07:26)
[2024-07-27] MEDS: ACETAMINOPHEN TAB 500 MG TAB PO PRN (07:28)
[2024-07-27] MEDS: ALPRAZolam 0.25 MG TAB PO STA (08:04)
--- NOTE | 2024-07-27 09:16 | P.PN ---
Progress Note - Text Progress Note Date: 07/27/24 Patient here today for needle localization calcifications right breast. Patient went downstairs for needle localization. Following that spoke with radiologist. Calcifications they were targeting apparently have been relatively stable dating back to 2018. They were unable to localize these calcifications using our standard techniques. Patient spoke with the radiologist at length. He is not concerned about these calcifications and is advising repeat diagnostic mammogram in October. He relayed that information to me as well. Patient is agreeable with that plan. We did offer second opinion at tertiary care breast center. She will consider and notify me if she would like to proceed with that. Surgery canceled for today.
--- NOTE | 2024-07-27 13:15 | MM ---
Risk Values: Kusum 5 year model risk: 2.1%. NCI Lifetime model risk: 4.3%. Procedure Description: The patient's imaging is reviewed. The intended bi Electronically signed and approved by: Alesia Lane M.D. Radiologist
== END ==
LOC: OR 06:41
PROVIDERS: ATTEND Surgery
DX: R92.8 Other abnormal and inconclusive findings on diagnostic imaging of breast (principal); Z53.29 Procedure and treatment not carried out because of patient's decision for other reasons

== ENCOUNTER 2024-08-19 14:23 | Emergency (ER) | payer MEDICARE, BC ==
--- NOTE | 2024-08-19 16:46 | ED ---
General Adult HPI - General Chief complaint: Arrhythmia/Palpitations Stated complaint: Dizziness Time Seen by Provider: 08/19/24 16:14 Source: patient Mode of arrival: ambulatory Limitations: no limitations - History of Present Illness Initial comments: Marnie 78-year-old female with no cardiac history who presents to the emergency department today via private vehicle for evaluation of palpitations. Patient reports she was sitting on her couch reading when she felt some fluttering in her chest. Patient admits she then got a little bit anxious about that, she stood up and felt lightheaded so she sat back down. Patient says she felt better for about 3 minutes but when she got up again she again felt lightheaded and had some palpitations she called her and asked him to bring her to the hospital. Patient states she drinks coffee regularly she had 2 glasses this morning that is normal for her. No other change in her diet. She has not been ill recently no recent viral upper respiratory infection, no nausea or vomiting. She has been eating and drinking well and staying hydrated. She did not have any pain in her chest or shortness of breath with this episode. - Related Data Home Medications Medication Instructions Recorded Confirmed Olmesartan Medoxomil [Benicar] 40 mg PO HS 08/08/18 07/24/24 Pravastatin Sodium [Pravachol] 20 mg PO HS 08/08/18 07/24/24 hydroCHLOROthiazide 12.5 mg PO DAILY 05/09/24 07/24/24 Allergies Allergy/AdvReac Type Severity Reaction Status Date / Time No Known Allergies Allergy Verified 08/19/24 14:27 Review of Systems ROS Statement: Those systems with pertinent positive or pertinent negative responses have been documented in the HPI. ROS Other: All systems not noted in ROS Statement are negative. 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 History of Any Multi-Drug Resistant Organisms: None Reported Past Surgical History: Breast Surgery, Joint Replacement Additional Past Surgical History / Comment(s): colonoscopy, breast reduction, laser eye surgery, RT NISSA Past Anesthesia/Blood Transfusion Reactions: No Reported Reaction Additional Past Anesthesia/Blood Transfusion Reaction / Comment(s): no hx blood transfusion Past Psychological History: No Psychological Hx Reported Smoking Status: Never smoker Past Alcohol Use History: Occasional Past Drug Use History: None Reported - Past Family History Father Family Medical History: Cancer Sister(s) Family Medical History: Cancer Brother(s) Family Medical History: Cancer Additional Family Medical History / Comment(s): 2 brothers had CA Mother Family Medical History: COPD General Exam - General Exam Comments Initial Comments: Physical Exam GENERAL: Patient is well-developed and well-nourished. Patient is nontoxic and well- hydrated and is in no distress. HENT: Normocephalic, Atraumatic. EYES: PERRL, EOMI PULMONARY: Unlabored respirations. No audible rales rhonchi or wheezing was noted. CARDIOVASCULAR: There is a regular rate and rhythm without any murmurs gallops or rubs. ABDOMEN: Soft and nontender with normal bowel sounds. SKIN: Skin is clear with no lesions or rashes and otherwise unremarkable. : Deferred NEUROLOGIC: Patient is alert and oriented x3. Moving all extremities spontaneously MUSCULOSKELETAL: Normal extremities with adequate strength and full range of motion. No lower extremity swelling or edema. No calf tenderness. PSYCHIATRIC: Normal psychiatric evaluation. Limitations: no limitations Course Vital Signs 08/19/24 08/19/24 08/19/24 14:24 16:27 18:26 Temperature 97.4 F L 97.8 F Pulse Rate 96 73 78 Respiratory 18 20 18 Rate Blood Pressure 196/95 162/91 164/88 O2 Sat by Pulse 98 97 95 Oximetry EKG Findings - EKG Comments: EKG Findings:: Interpreted by me EKG obtained due to complaint of palpitations EKG obtained at 1432 rate is 74 rhythm is narrow complex with a P wave before each QRS this is a sinus rhythm degree AV block, NM 207, QRS 93 QTc 428 there are no acute ST elevations or depressions there is no evidence of ischemia or infarction. Medical Decision Making - Medical Decision Making Was pt. sent in by a medical professional or institution (, PA, MATERIAL ATTENDANT, urgent care, hospital, or long-term...) When possible be specific @ -[No] Did you speak to anyone other than the patient for history (EMS, parent, family, police, friend...)? What history was obtained from this source @ - at bedside Did you review nursing and triage notes (agree or disagree)? Why? @ -[I reviewed and agree with nursing and triage notes] Were old charts reviewed (outside hosp., previous admission, EMS record, old EKG, old radiological studies, urgent care reports/EKG's, long-term records)? Report findings @ -[No old charts were reviewed] Differential Diagnosis (chest pain, altered mental status, abdominal pain women, abdominal pain men, vaginal bleeding, weakness, fever, dyspnea, syncope, headache, dizziness, GI bleed, back pain, seizure, CVA, palpatations, mental health)? @ -Differential Palpitations Ventricular arrhythmias, atrial arrhythmias, myocardial infarction, anemia, thyrotoxicosis, electrolyte imbalance, hypokalemia, pulmonary embolism, pulmonary disease, drugs, alcohol, anxiety, stress.... This is not meant to be an all-inclusive list. EKG interpreted by me (3pts min.). @ -[As above] X-rays interpreted by me (1pt min.). @ -Chest x-ray with no focal consolidations, no pneumothorax, no widened mediastinum, no pleural effusions no acute findings CT interpreted by me (1pt min.). @ -[None done] U/S interpreted by me (1pt. min.). @ -[None done] What testing was considered but not performed or refused? (CT, X-rays, U/S, labs)? Why? @ -[None] What meds were considered but not given or refused? Why? @ -[None] Did you discuss the management of the patient with other professionals (carmen jones i.e. , PA, MATERIAL ATTENDANT, lab, RT, psych nurse, family welfare social work professor, improvement auditor, teacher, air defense artillery officer, registered nurse hh case manager)? Give summary @ -[No] Was smoking cessation discussed for >3mins.? @ -[No] Was critical care preformed (if so, how long)? @ -[No] Were there social determinants of health that impacted care today? How? (Homelessness, low income, unemployed, alcoholism, drug addiction, transportation, low edu. Level, literacy, decrease access to med. care, skilled nursing, rehab)? @ -[No] Was there de-escalation of care discussed even if they declined (Discuss DNR or withdrawal of care, Hospice)? DNR status @ -[No] What co-morbidities impacted this encounter? (DM, HTN, Smoking, COPD, CAD, Cancer, CVA, ARF, Chemo, Hep., AIDS, mental health diagnosis, sleep apnea, morbid obesity)? @ -[None] Was patient admitted / discharged? Hospital course, mention meds given and route, prescriptions, significant lab abnormalities, going to OR and other pertinent info. @ -Discharged Patient was seen and evaluated, history is obtained from the patient and at bedside. Patient had a experienced palpitations prior to arrival she was asymptomatic on arrival EKG had a single PVC. Blood work including TSH was w ithin normal limits. Patient received some IV fluids and upon reevaluation she states she is feeling well she has not had any symptoms since being here. I discussed with the patient that EKG is only a few seconds monitoring and I would recommend she discuss with her primary care doctor about possibly getting a Holter monitor for more long-term monitoring. Patient was agreeable with this. Undiagnosed new problem with uncertain prognosis? @ -[No] Drug Therapy requiring intensive monitoring for toxicity (Heparin, Nitro, Insulin, Cardizem)? @ -[No] Were any procedures done? @ -[No] Diagnosis/symptom? @ -Palpitations Acute, or Chronic, or Acute on Chronic? @ -Acute Uncomplicated (without systemic symptoms) or Complicated (systemic symptoms)? @ -Uncomplicated Side effects of treatment? @ -[No] Exacerbation, Progression, or Severe Exacerbation? @ -[No] Poses a threat to life or bodily function? How? (Chest pain, USA, SC, pneumonia, PE, COPD, DKA, ARF, appy, cholecystitis, CVA, Diverticulitis, Homicidal, Suicidal, threat to staff... and all critical care pts) @ -Unlikely - Lab Data Result diagrams: 08/19/24 16:49 08/19/24 16:49 Lab Results 08/19/24 08/19/24 08/19/24 Range/Units 16:49 16:49 16:49 WBC 5.5 (3.8-10.6) k/uL RBC 4.52 (3.80-5.40) m/uL Hgb 13.4 (11.4-16.0) gm/dL Hct 42.3 (34.0-46.0) % MCV 93.5 (80.0-100.0) fL MCH 29.6 (25.0-35.0) pg MCHC 31.7 (31.0-37.0) g/dL RDW 13.7 (11.5-15.5) % Plt Count 217 (150-450) k/uL MPV 8.3 Neutrophils % 65 % Lymphocytes % 25 % Monocytes % 6 % Eosinophils % 1 % Basophils % 1 % Neutrophils # 3.6 (1.3-7.7) k/uL Lymphocytes # 1.4 (1.0-4.8) k/uL Monocytes # 0.3 (0-1.0) k/uL Eosinophils # 0.1 (0-0.7) k/uL Basophils # 0.1 (0-0.2) k/uL PT 10.2 (10.0-12.5) sec INR 0.9 (<1.2) APTT 21.7 L (22.0-30.0) sec Sodium 142 (137-145) mmol/L Potassium 4.0 (3.5-5.1) mmol/L Chloride 109 H (98-107) mmol/L Carbon Dioxide 21 L (22-30) mmol/L Anion Gap 12 mmol/L BUN 23 H (7-17) mg/dL Creatinine 0.63 (0.52-1.04) mg/dL Est GFR (CKD-EPI)AfAm >90 (>60 ml/min/1.73 sqM) Est GFR (CKD-EPI)NonAf 87 (>60 ml/min/1.73 sqM) Glucose 93 (74-99) mg/dL Calcium 10.4 H (8.4-10.2) mg/dL Magnesium 1.7 (1.6-2.3) mg/dL Total Bilirubin 0.4 (0.2-1.3) mg/dL AST 22 (14-36) U/L ALT 10 (4-34) U/L Alkaline Phosphatase 71 (38-126) U/L Troponin I (0.000-0.034) ng/mL Total Protein 7.1 (6.3-8.2) g/dL Albumin 4.5 (3.5-5.0) g/dL TSH 2.320 (0.465-4.680) mIU/L 08/19/24 Range/Units 16:49 WBC (3.8-10.6) k/uL RBC (3.80-5.40) m/uL Hgb (11.4-16.0) gm/dL Hct (34.0-46.0) % MCV (80.0-100.0) fL MCH (25.0-35.0) pg MCHC (31.0-37.0) g/dL RDW (11.5-15.5) % Plt Count (150-450) k/uL MPV Neutrophils % % Lymphocytes % % Monocytes % % Eosinophils % % Basophils % % Neutrophils # (1.3-7.7) k/uL Lymphocytes # (1.0-4.8) k/uL Monocytes # (0-1.0) k/uL Eosinophils # (0-0.7) k/uL Basophils # (0-0.2) k/uL PT (10.0-12.5) sec INR (<1.2) APTT (22.0-30.0) sec Sodium (137-145) mmol/L Potassium (3.5-5.1) mmol/L Chloride (98-107) mmol/L Carbon Dioxide (22-30) mmol/L Anion Gap mmol/L BUN (7-17) mg/dL Creatinine (0.52-1.04) mg/dL Est GFR (CKD-EPI)AfAm (>60 ml/min/1.73 sqM) Est GFR (CKD-EPI)NonAf (>60 ml/min/1.73 sqM) Glucose (74-99) mg/dL Calcium (8.4-10.2) mg/dL Magnesium (1.6-2.3) mg/dL Total Bilirubin (0.2-1.3) mg/dL AST (14-36) U/L ALT (4-34) U/L Alkaline Phosphatase (38-126) U/L Troponin I <0.012 (0.000-0.034) ng/mL Total Protein (6.3-8.2) g/dL Albumin (3.5-5.0) g/dL TSH (0.465-4.680) mIU/L Disposition Clinical Impression: Palpitations Disposition: HOME SELF-CARE Condition: Stable Instructions (If sedation given, give patient instructions): Heart Palpitations (ED) Is patient prescribed a controlled substance at d/c from ED?: No Referrals: Latonia Ontiveros MD [Primary Care Provider] - 1-2 days
[2024-08-19] MEDS: SODIUM CHLORIDE 0.9% 1,000 ML IV STA (16:52)
[2024-08-19 17:01] LABS: WBC 5.5 k/uL (3.8-10.6)
[2024-08-19 17:02] LABS: Basophils # (A) 0.1 k/uL (0-0.2); Basophils % (A) 1 %; Eosinophils # (A) 0.1 k/uL (0-0.7); Eosinophils % (A) 1 %; HCT 42.3 % (34.0-46.0); HGB 13.4 gm/dL (11.4-16.0); Lymphocytes # (A) 1.4 k/uL (1.0-4.8); Lymphocytes % (A) 25 %; MCH 29.6 pg (25.0-35.0); MCHC 31.7 g/dL (31.0-37.0); MCV 93.5 fL (80.0-100.0); Mean Platelet Volume 8.3; Monocytes # (A) 0.3 k/uL (0-1.0); Monocytes % (A) 6 %; Neutrophils # (A) 3.6 k/uL (1.3-7.7); Neutrophils % (A) 65 %; Platelet Count 217 k/uL (150-450); RBC 4.52 m/uL (3.80-5.40); RDW 13.7 % (11.5-15.5)
[2024-08-19 17:19] LABS: ALT 10 U/L (4-34); AST 22 U/L (14-36); African American GFR (CKD) >90 (>60 ml/min/1.73 sqM); Albumin 4.5 g/dL (3.5-5.0); Alkaline Phosphatase 71 U/L (38-126); Anion Gap 12 mmol/L; Blood Urea Nitrogen 23 mg/dL (7-17); Calcium 10.4 mg/dL (8.4-10.2); Carbon Dioxide 21 mmol/L (22-30); Chloride 109 mmol/L (98-107); Glucose 93 mg/dL (74-99); Magnesium 1.7 mg/dL (1.6-2.3); Non-African American GFR(CKD) 87 (>60 ml/min/1.73 sqM); Sodium 142 mmol/L (137-145); Total Bilirubin 0.4 mg/dL (0.2-1.3); Total Protein 7.1 g/dL (6.3-8.2)
[2024-08-19 17:23] LABS: INR 0.9 (<1.2); Partial Thromboplastin Time 21.7 sec (22.0-30.0); Prothrombin Time 10.2 sec (10.0-12.5)
[2024-08-19 18:31] VITALS: BP 164/88; PULSE 78; RESP 18; TEMP 97.8
--- NOTE | 2024-08-19 19:30 | XR ---
EXAMINATION TYPE: XR chest 2V DATE OF EXAM: 08/19/2024 5:08 PM CLINICAL INDICATION:Female, 78 years old with history of dysrhythmia; [facility] COMPARISON: None TECHNIQUE: XR chest 2V. Frontal and lateral views of the chest.. FINDINGS: Lines/Tubes/Devices: No indwelling lines are seen. Heart/mediastinum: Heart size is normal. Mediastinum appears normal. Pulmonary vascularity: Not increased, Lungs/Pleura: There is no evidence of pleural effusion, focal consolidation, or pneumothorax. Mild c urvilinear scarring or atelectasis towards the left lung base. Musculoskeletal: No acute osseous abnormality demonstrated in the limits of the exam. Mild asymmetri c elevation right hemidiaphragm. Mild degenerative changes. Other findings: None. IMPRESSION: No acute cardiopulmonary abnormality. [facility], , 08/19/2024 7:28 PM
== END 2024-08-19 18:29 | disposition home or self-care (01) ==
LOC: EC 14:23
CPT/HCPCS: 36415; 71046; 80053; 83735; 84443; 84484; 85025; 85610; 85730; 93005; 96360; 99284

== ENCOUNTER → 2024-10-24 | Outpatient (CLI) | payer MEDICARE, BC ==
--- NOTE | 2024-10-24 10:11 | MM ---
Reason for Exam: Follow-up at short interval from prior study. Last screening mammogram was performed 5 month(s) ago. Patient History: Menarche at age 13. First Full-Term at age 21. Postmenopausal. Other cancer. 2009, Bilateral Reduction. 04/14/1999, Benign Stereotactic Core Biopsy on the left side. 12/31/2004, Benign Stereotactic Core Biopsy on the left side. 07/27/2024, MG discontinued needle loc RT on the right side. Risk Values: Kusum 5 year model risk: 2.1%. NCI Lifetime model risk: 4.0%. Prior Study Comparison: 06/09/2023 Bilateral MG 3D screening mammo w/cad, [facility]. 06/12/2024 Bilateral MG 3D screening mammo w/cad, [facility]. 06/18/2024 Right MG 3D work up w/cad RT, [facility]. Tissue Density: Right: The breasts are heterogeneously dense, which may obscure small masses. Findings: Analyzed By CAD. Patient status post reduction changes. Areas of asymmetric density show no persisting abnormality medial aspect of the right breast. Grouped punctate calcifications are posterior superior aspect only seen on the MLO view remain unchanged. Reassess at the time of the patient's annual exam. Overall Assessment: Probably benign, BI-RAD 3 Management: Diagnostic Mammogram of both breasts in 7 months. Total one-year follow-up right breast and annual exam of the left breast. Results were given to the patient verbally at the time of exam. Patient should continue monthly self-breast exams. A clinical breast exam by your physician is recommended on an annual basis. This exam should not preclude additional follow-up of suspicious palpable abnormalities. Note on Kusum scores and lifetime risk: 1. A Kusum score greater than 3% is considered moderate risk. If this is the case, consider specialist referral to assess eligibility for a risk reducing agent. 2. If overall lifetime risk for the development of breast cancer is 20% or higher, the patient may qualify for future screening with alternating mammogram and breast MRI. [facility], , 10/24/2024 10:07 AM. Electronically signed and approved by: Alesia Lane M.D. Radiologist
== END | disposition home or self-care (01) ==
LOC: RADMAMWWP 09:27
PROVIDERS: ATTEND Surgery
DX: R92.8 Other abnormal and inconclusive findings on diagnostic imaging of breast (principal); Z78.0 Asymptomatic menopausal state; R92.331 Mammographic heterogeneous density, right breast; Z98.890 Other specified postprocedural states
CPT/HCPCS: 77065; G0279; 77061

== ENCOUNTER → 2024-11-15 | Outpatient (CLI) | payer MEDICARE, BC ==
[2024-11-15 16:15] LABS: ALT <5 U/L (8-44); AST 19 U/L (13-35); Albumin 4.4 g/dL (3.8-4.9); Albumin/Globulin Ratio 1.76 Ratio (1.60-3.17); Alkaline Phosphatase 94 U/L (41-126); BUN/Creat Ratio 41.29 Ratio (12.00-20.00); Blood Urea Nitrogen 28.9 mg/dL (9.0-27.0); Calcium 9.8 mg/dL (8.7-10.3); Carbon Dioxide 24.8 mmol/L (21.6-31.8); Chloride 106 mmol/L (96-109); Chol/HDL Ratio 2.96 Ratio; Globulin 2.5 g/dL (1.6-3.3); Glucose 104 mg/dL (70-110); Potassium 4.3 mmol/L (3.5-5.5); Sodium 142 mmol/L (135-145); Total Bilirubin 0.2 mg/dL (0.3-1.2); Total Protein 6.9 g/dL (6.2-8.2)
== END | disposition home or self-care (01) ==
LOC: LABWHC1 09:58
PROVIDERS: ATTEND Family Medicine
DX: I10 Essential (primary) hypertension (principal); E78.00 Pure hypercholesterolemia, unspecified
CPT/HCPCS: 36415; 80053; 80061

== ENCOUNTER → 2025-05-06 | Outpatient (CLI) | payer MEDICARE, BC ==
--- NOTE | 2025-05-07 10:15 | MM ---
Reason for Exam: Follow-up at short interval from prior study. Last screening mammogram was performed 11 month(s) ago. Patient History: Menarche at age 13. First Full-Term at age 21. Postmenopausal. 2009, Bilateral Reduction. 04/14/1999, Benign Stereotactic Core Biopsy on the left side. 12/31/2004, Benign Stereotactic Core Biopsy on the left side. 07/27/2024, MG discontinued needle loc RT on the right side. Risk Values: Kusum 5 year model risk: 2.1%. NCI Lifetime model risk: 4.0%. Prior Study Comparison: 10/03/2019 Bilateral Diagnostic Mammogram, [facility]. 01/07/2021 Bilateral Screening Mammogram, [facility]. 06/09/2023 Bilateral MG 3D screening mammo w/cad, [facility]. 06/12/2024 Bilateral MG 3D screening mammo w/cad, [facility]. 06/18/2024 Right MG 3D work up w/cad RT, [facility]. 10/24/2024 Right MG 3D diag mammo w/cad RT, [facility]. Tissue Density: The breasts are heterogeneously dense, which may obscure small masses. Findings: Analyzed By CAD. Bilateral reduction mammoplasty changes. Redemonstrated calcifications far posterior superior right MLO view. These are identified on the XCCL view in which accessory tissue was also included. The calcifications number approximately 10-11, unchanged for one year. Before this, they may have been more bunched up in appearance. Back in 2020 and 2016, they appeared fainter. An additional one-year follow-up is recommended. We note that needle localization was previously attempted unsuccessfully. Other scattered round, dystrophic, and benign vascular calcifications also remain unchanged. Areas of asymmetric density are unchanged. Overall Assessment: Probably benign, BI-RAD 3 Management: Diagnostic Mammogram of both breasts in 1 year. Total two-year follow-up right breast for the posterior calcifications. Results were given to the patient verbally at the time of exam. Patient should continue monthly self-breast exams. A clinical breast exam by your physician is recommended on an annual basis. This exam should not preclude additional follow-up of suspicious palpable abnormalities. Note on Kusum scores and lifetime risk: 1. A Kusum score greater than 3% is considered moderate risk. If this is the case, consider specialist referral to assess eligibility for a risk reducing agent. 2. If overall lifetime risk for the development of breast cancer is 20% or higher, the patient may qualify for future screening with alternating mammogram and breast MRI. [facility], , 05/06/2025 11:20 AM. Electronically signed and approved by: Alesia Lane M.D. Radiologist
== END | disposition home or self-care (01) ==
LOC: RADMAMWWP 10:22
PROVIDERS: ATTEND Surgery
DX: R92.8 Other abnormal and inconclusive findings on diagnostic imaging of breast (principal); R92.1 Mammographic calcification found on diagnostic imaging of breast; R92.333 Mammographic heterogeneous density, bilateral breasts; Z78.0 Asymptomatic menopausal state
CPT/HCPCS: 77066; G0279; 77062